=== PATIENT | male | born 1940 | race Caucasian/White ===

== ENCOUNTER → 2017-06-26 | Outpatient (CLI) | payer MEDICARE ==
[~2017-06-26] MED LIST: REGADENOSON 0.4 MG/5 ML DISP.SYRIN. IV ONE
--- NOTE | 2017-06-26 11:13 | CARD ---
MR#: [id number] Date of Study: 06/26/2017 Ordering Physician: OZ ZHONG, Referring Physician: OZ ZHONG, Tech: URIEL Forbes APPROVED REPORT EXAM: Two-dimensional and M-mode echocardiogram with Doppler and color Doppler. Other Information Quality : Average INDICATION Chest Pain Hx - Aortic Dissection 2D DIMENSIONS Left Atrium(2D)4.0 (1.6-4.0cm)IVSd1.5 (0.7-1.1cm) Aortic Root(2D)4.0 (2.0-3.7cm)LVDd3.9 (3.9-5.9cm) LVOT Diameter2.0 (1.8-2.4cm)PWd1.4 (0.7-1.1cm) LVDs2.4 (2.5-4.0cm)FS (%) 31.0 % SV47.6 mlLVEF(%)65.0 (>50%) Aortic Valve AoV Peak Herbert.169.8cm/sAoV VTI31.0cm AO Peak GR.11.5mmHgLVOT Peak Herbert.90.5cm/s LVOT VTI 17.72cmAO Mean GR.6mmHg ARTHUR (VMAX)1.62fk3PNB (VTI)1.84cm2 Mitral Valve MV E Tpjmnnng23.5cm/sMV DECEL EVRC136sg MV A Iaznewnk90.6cm/sE/A Ratio0.9 Tricuspid Valve TR P. Yivhwocl08re/sRAP BUEQKJAJ8fxXy TR Peak Gr.52ugMdIVTF50kcAt LEFT VENTRICLE The left ventricle is normal size. There is mild to moderate left ventricular hypertrophy. The left v entricular systolic function is normal and the ejection fraction is within normal range. The Ejection Fraction is 55-60%. There is normal LV segmental wall motion. RIGHT VENTRICLE The right ventricle is normal size. There is normal right ventricular wall thickness. The right ventr icular systolic function is normal. ATRIA The left atrium is borderline dilated. The right atrium size is normal. Mobile interatrial septum. AORTIC VALVE The aortic valve is probably trileaflet. Doppler and Color Flow revealed mild aortic regurgitation. T here is no significant aortic valvular stenosis. MITRAL VALVE The mitral valve leaflets are calcified. The anterior leaflet is redundant and prolapses. There is no mitral valve stenosis. Doppler and Color-flow revealed trace to mild mitral regurgitation. TRICUSPID VALVE The tricuspid valve is normal in structure and function. Doppler and Color Flow revealed mild tricusp id regurgitation. There is no tricuspid valve stenosis. PULMONIC VALVE The pulmonary valve is normal in structure and function. Doppler and Color Flow revealed trace to mil d pulmonic valvular regurgitation. GREAT VESSELS The aortic root is mildly enlarged. (4.0 cm) The ascending aorta is normal in size. Not able to visua lize the aortic arch. The IVC is normal in size and collapses >50% with inspiration. PERICARDIAL EFFUSION There is no pleural effusion. There is no evidence of significant pericardial effusion. Critical Notification Critical Value: No <Conclusion> The left ventricle is normal size. The left ventricular systolic function is normal and the ejection fraction is within normal range. The Ejection Fraction is 55-60%. There is mild to moderate left ventricular hypertrophy. There is no significant aortic valvular stenosis. Doppler and Color Flow revealed mild aortic regurgitation. Doppler and Color-flow revealed trace to mild mitral regurgitation. Doppler and Color Flow revealed mild tricuspid regurgitation. The aortic root is mildly enlarged. (4.0 cm) Signed by : Joel Arcos MD Electronically Approved : 06/26/2017 11:12:18
--- NOTE | 2017-06-26 12:09 | RAD ---
MR#: [id number] Date of Study: 06/26/2017 Ordering Physician: OZ ZHONG, Referring Physician: LILIANA ALMANZA Tech: Luis Sandoval, RT (R) (N) APPROVED REPORT Test Type: Pharmacological Stress Nurse/Tech: Emily Montenegro Test Indications: CP Cardiac History: See Electronic Medical Record Medications: See EMR Resting Heart Rate: 67 bpm Resting Blood Pressure: 187/78mmHg Pretest Chest Pain: None Pharm. Details Pharmacologic stress testing was performed using 0.4mg per 5ml of regadenoson given intravenously ove r 7-10 seconds. POST EXERCISE Reason for Termination: Infusion complete Max HR: 84 bpm Max Blood Pressure: 177/87mmHg Chest Pain: No. Arrhythmia: No. ST Change: No. INTERPRETATION Stress EKG Conclusion: The resting EKG shows a sinus rhythm and mild nonspecific ST segment changes. The stress EKG shows no significant changes from baseline. No EKG evidence of stress-induced ischemia. Imaging Protocol IMAGE PROTOCOL: Rest Tc-99m/stress Tc-99m 1 day Rest: Stress: Viability: Radiopharm.Tc99m PozlcqyvlIw51k Sestamibi Uqns45uIu 33mCi Duration 20min. 15min. Img Date 06/26/2017 06/26/2017 Inj-Img Epnq07eoz. 45min. STRESS DATA End Diast. Vol.104.0mlAv. Heart Rate86.0bpm LVEDV index BSA2.0mlCardiac Output0.1L/min End Syst. Vol.27.0mlCO Index BSA6.7L/min LVESV index BSA0.0mlMyocardial Jwny622.0g Eject. Bpsjxmiz37.0% Stress Rates Pk. Fill Rate3.31EDV/secLVtime Pk. Fill 187.61msec Pk. Empty Rate5.26ESV/secLVtime Pk. Ojwjf310.58msec 1/3 Pk. Fill1.36EDV/sec Stress Scores Regional WT2.00Summed WT7.00 Regional WM0.00Summed WM8.00 LV Perfusion The stress scans show no significant defects. The rest scans show no significant defects. Nuclear imaging shows no reversible ischemia or infarct. Wall Motion Normal left ventricular systolic function with an ejection fraction of greater than 70%. LV Perf. Quant 17 Seg. SSS3.00 17 Seg. SRS3.00 17 Seg. SDS0.00 Stress Defect Extent (% LAD)0.00Rest Defect Extent (% LAD)0.00Rev. Defect Extent (% LAD)0.00 Stress Defect Extent (% LCX) 33.80Rest Defect Extent (% LCX)26.30Rev. Defect Extent (% LCX)0.00 Stress Defect Extent (% RCA)0.00Rest Defect Extent (% RCA)0.00Rev. Defect Extent (% RCA)0.00 Stress Defect Extent (% RACHANA)5.90Rest Defect Extent (% RACHANA)4.60Rev. Defect Extent (% RACHANA)0.00 Conclusion 1. No EKG evidence of stress-induced ischemia. 2. Nuclear imaging shows no reversible ischemia or infarct. 3. Normal left ventricular systolic function with an ejection fraction of greater than 70%. 4. Low risk Lexiscan nuclear stress test. Signed by : Joel Arcos MD Electronically Approved : 06/26/2017 12:09:14
--- NOTE | 2017-06-27 08:35 | RAD ---
MR#: [id number] Date of Study: 06/26/2017 Ordering Physician: OZ ZHONG, Referring Physician: OZ ZHONG, Tech: Alison Wharton, MARIELOS, RVT, RTR APPROVED REPORT Patient Location: OUT-PATIENT Indications Dissection of the Abdominal Aorta Limited diagnostic images of the abdominal aorta. No significant elevation velocities as noted. Due t o body habitus and patient discomfort grayscale images are limited. No obvious dilation is noted. Critical Notification Critical Value: No <Conclusion> 1. No significant aneurysmal dilatation is noted with limited evaluation on carrillo scale images of the abdominal aorta. No significant velocity acceleration is noted. Signed by : Oz Zhong, Electronically Approved : 06/27/2017 08:35:37
--- NOTE | 2017-06-27 09:12 | RAD ---
MR#: [id number] Date of Study: 06/26/2017 Ordering Physician: OZ ZHONG, Referring Physician: OZ ZHONG, Tech: Alison Wharton RDMS, RVT, RTR APPROVED REPORT Patient Location: OUT-PATIENT Indications Grayscale images of the bilateral lower extremity arterial vessels reveals mild to moderate calcified plaque throughout the arterial system. On the right velocities are mostly triphasic and biphasic ran ging from approximately 84-29 cm/s the distal popliteal segment. No focal high-grade stenosis is iden tified. Below the knee there is three-vessel runoff again without any significant velocity accelerati on or deceleration. Similarly on the left side velocities range from approximately 64 cm/s to 41 cm a t the knee. There is three-vessel runoff below the knee. Critical Notification Critical Value: No <Conclusion> 1. No evidence of focal stenosis is identified in the bilateral lower extremity arterial vessels. Signed by : Oz Zhong, Electronically Approved : 06/27/2017 09:12:12
== END | disposition home or self-care (01) ==
LOC: US 08:39
PROVIDERS: ATTEND Internal Medicine Cardiovascular Disease
DX: I71.01 Dissection of thoracic aorta (principal); I10 Essential (primary) hypertension; F17.200 Nicotine dependence, unspecified, uncomplicated; Z86.79 Personal history of other diseases of the circulatory system; I73.9 Peripheral vascular disease, unspecified
CPT/HCPCS: 76770; 78452; 93017; 93306; 93925; 96374; 96375; 96376; A9500; J2785

== ENCOUNTER → 2017-07-10 | Outpatient (CLI) | payer MEDICARE ==
[~2017-07-10] MED LIST changes: +IOHEXOL 300 MG/ML 75 ML VIAL. IV ONE; -REGADENOSON 0.4 MG/5 ML DISP.SYRIN. IV ONE
[2017-07-10 11:08] LABS: CREATININE 1.6 mg/dL (0.7-1.3); GFR 42.1
--- NOTE | 2017-07-10 14:46 | RAD ---
CTA of the chest and abdomen with and without contrast Clinical indications: Aortic dissection. Technique: Noncontrast axial localizer was performed. After IV infusion of 60 cc of Omnipaque 300, helical CT scanning of the chest and abdomen was performed using the thoracic and abdominal aortic protocol. Using a MIP algorithm, a 3-D reconstructed aortogram was generated. PQRS Compliance Statement: One or more of the following individualized dose reduction techniques were utilized for this examination: 1. Automated exposure control 2. Adjustment of the mA and/or kV according to patient size 3. Use of iterative reconstruction technique CHEST CTA FINDINGS: There is a intimal flap starting at the level of the proximal aortic arch extending through the entire descending thoracic aorta. The brachiocephalic artery and the left common carotid artery and the left subclavian artery arise from the true lumen. The intimal flap does not extend significantly into the ascending aorta and does not involve the sinus of Valsalva. The greatest caliber of the ascending aorta is 3.9 cm. The greatest caliber of the aortic arch is 4.6 cm. The greatest caliber of the descending thoracic aorta is 4.2 cm. There are calcifications of the aortic valve leaflets which may be seen with aortic stenosis. The heart size is at the upper limits of normal. No pericardial effusion is seen. Calcified atheromatous disease of the coronary arteries is seen. The pulmonary arteries are not optimally opacified to evaluate for pulmonary emboli. No enlarged thoracic lymphadenopathy is seen. A large hiatal hernia is seen containing 50% of the stomach. Mild atelectasis is seen within the dependent portion of the lung triplett. Otherwise no lung mass or lung consolidation is seen. No pleural effusion or pneumothorax is evident. The proximal bronchial tree is patent. There is a mild compression deformity of T2. No osteolytic process is seen. ABDOMEN CTA FINDINGS: The intimal flap or dissection continues into the abdominal aorta throughout it's length all the way down to the distal aortic bifurcation. There is no extension into the common iliac arteries. There is decreased enhancement of the true lumen and false lumen related to slower flow. Ultrasound dated 06/26/2017 demonstrated color Doppler flow within the abdominal aorta. Greatest caliber of the abdominal aorta is within the proximal portion measuring 3.7 cm in AP dimension and 3.9 cm in transverse dimension. The celiac artery and superior mesenteric artery and right main renal artery come off the true lumen. The left main renal artery appears to come off both lumens although more so off the false lumen. The inferior mesenteric artery comes off the false lumen. Both kidneys enhance. No hydronephrosis is seen on either side. No enlarged abdominal lymphadenopathy is seen. No adrenal mass is seen. The spleen is not enlarged. No focal hepatic mass is seen. The pancreas is normal. The gallbladder is normal. No extrahepatic biliary ductal dilatation is seen. No obstructive bowel pattern is evident. No free air or free fluid or mesenteric edema is seen. No osteolytic process is seen. There is a focal round osteosclerotic lesion of the right iliac bone and a smaller lesion involving the posterior right iliac bone adjacent to the right SI joint. 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 Findings as discussed above. Calcification of aortic valve leaflets which may be seen with aortic valvular stenosis. The heart size is at the upper limits of normal. No pericardial effusion is seen. Calcified atheromatous disease of the coronary arteries is seen. Large hiatal hernia. No acute lung infiltrate. 2 osteosclerotic areas in the right iliac bone are seen. These may represent bone islands but correlation with PSA is recommended to exclude osteoblastic metastatic disease from prostate cancer. Compression fracture of T2 of indeterminate age.
== END | disposition home or self-care (01) ==
LOC: CT 10:17
PROVIDERS: ATTEND Internal Medicine Cardiovascular Disease
DX: I71.01 Dissection of thoracic aorta (principal); M48.54XA Collapsed vertebra, not elsewhere classified, thoracic region, initial encounter for fracture; I25.10 Atherosclerotic heart disease of native coronary artery without angina pectoris; K44.9 Diaphragmatic hernia without obstruction or gangrene; J98.11 Atelectasis
CPT/HCPCS: 36415; 71275; 74175; 82565; 84520; Q9967

== ENCOUNTER 2019-04-16 16:02 | Inpatient (IN) | payer MEDICARE ==
[~2019-04-16] VITALS: Ht 167.6 cm; Wt 64.9 kg
--- NOTE | 2019-04-16 16:28 | PHYS DOC ---
Past History Past Medical History: GI Bleed, High Cholesterol, Hypertension, Other Additional Past Medical Histor: bleeding ulcers, Pulmonary Embolism, " blood clot in my lung" Past Surgical History: Other Additional Past Surgical Histo: Aortic Aneurysm repair, Alcohol Use: Rarely Drug Use: None Adult General Chief Complaint Chief Complaint: NAUSEA/VOMITING/DIARRHEA HPI HPI Patient is a 78-year-old male, on an unknown anticoagulant and unknown other medications, who presents to the emergency department for evaluation. He states he has had nausea and vomiting and diarrhea for the past 2 days, but has not had any bloody stools. He states he thinks he has the flu, as he has felt weak. He has not had any significant nasal congestion, but he does report a mild nonproductive cough. Denies any chest pain or shortness of breath, any abdominal pain, or any new pain at all. He has not had any definite fevers. He does report generalized weakness and fatigue. There are no alleviating or exacerbating factors to his symptoms otherwise. Review of Systems Review of Systems Constitutional: Denies fever or chills [] Eyes: Denies change in visual acuity, redness, or eye pain [] HENT: Denies nasal congestion or sore throat [] Respiratory: Denies productive cough or shortness of breath [] Cardiovascular: NThe patient denies any shortness of breath, chest pain, palpitations, or orthopnea [] GI: Denies abdominal pain, bloody emesis, bloody stools.[] : Denies dysuria or hematuria [] Musculoskeletal: Denies back pain or joint pain [] Integument: Denies rash or skin lesions [] Neurologic: Denies headache, focal weakness or sensory changes [] Endocrine: Denies polyuria or polydipsia [] All other systems were reviewed and found to be within normal limits, except as documented in this note. Current Medications Current Medications Current Medications Medications (Trade) Dose Ordered Sig/Corazon Start Time Stop Time Status Last Admin Dose Admin Iohexol (Omnipaque 300 Mg/ml) 75 ml 1X ONCE 04/16/19 16:30 04/16/19 16:31 UNV Sodium Chloride 1,000 ml @ 1,000 mls/hr 1X ONCE 04/16/19 16:30 04/16/19 17:29 UNV Allergies Allergies Allergies Coded Allergies Type Severity Reaction Last Updated Verified No Known Drug Allergies 06/26/17 No Physical Exam Physical Exam PHYSICAL EXAM: CONSTITUTIONAL: Well developed, well nourished HEAD: normocephalic, atraumatic EENT: PERRL, EOMI. Conjunctivae normal color, sclerae non-icteric; moist mucous membranes. NECK: Supple, non-tender; no meningismus. LUNGS: Lungs CTA, breathing even and unlabored. Normal air movement. HEART: Regular rate and rhythm, no murmur CHEST: No deformity; non-tender ABDOMEN: The abdomen is soft, and non-tender, no masses or bruits. Normal bowel sounds are present. EXTREM: Normal ROM; no deformity, no calf tenderness. Normal pulses palpable in all extremities. There is no pedal edema. SKIN: No rash; no diaphoresis NEURO: Alert; normal speech and cognition; CN's grossly intact; strength grossly intact without focal deficit. BACK: No CVA TTP. PSYCHIATRIC: Patient appears tearful. Current Patient Data Vital Signs Vital Signs Date Time Temp Pulse Resp B/P (MAP) Pulse Ox O2 Delivery O2 Flow Rate FiO2 04/16/19 16:06 97.9 70 18 99 Room Air EKG EKG Normal sinus rhythm at a rate of 60 beats for minute, normal axis, normal intervals, suggestion of left ventricular hypertrophy without acute ischemic ST/T changes.[] Radiology/Procedures Radiology/Procedures PROCEDURE: CT ABD PELV W/ IV CONTRST ONLY PQRS Compliance statement: One or more of the following individualized dose reduction techniques were utilized for this examination: 1. Automated exposure control. 2. Adjustment of the mA and/or kV according to patient size. 3. Use of iterative reconstruction technique. Indication: Nausea, vomiting and diarrhea. TECHNIQUE: CT abdomen and pelvis with IV contrast with multiplanar reformats. COMPARISON: 07/10/2017 FINDINGS: Heart is normal in size. No pericardial or pleural effusion. Clear lung bases. Liver, spleen, gallbladder, pancreas, adrenals and kidneys are within normal limits. No free pelvic fluid or ascites. The prostate and seminal vesicles show no large mass. No enlarged retroperitoneal or pelvic adenopathy. Chronic dissection is seen in the distal thoracic aorta extending into the proximal left common iliac artery with scattered atherosclerotic calcifications. The false and true lumen show opacification. No bowel obstruction. Sigmoid diverticulosis. Dilated loops of small bowel are seen in the pelvis. Moderate sliding hiatal hernia. No pneumoperitoneum. Urinary bladder demonstrates no radiopaque stone. There is circumferential wall thickening of the urinary bladder. No suspicious bony lesion. IMPRESSION: 1. Stable aortic dissection. 2. Few dilated distal small bowel loops in the pelvis, nonspecific but developing small bowel obstruction is not ruled out. 3. No nephrolithiasis or hydronephrosis. 4. Moderate-sized sliding hiatal hernia.[] PROCEDURE: PORTABLE CHEST 1V Indication: Cough. TECHNIQUE:Portable AP chest X-ray COMPARISON: None FINDINGS: Median sternotomy noted. Heart is normal in size. Tortuous thoracic aorta. Lungs are clear. No pneumothorax or pleural effusion. Visualized bony thorax within normal limits. IMPRESSION: Findings of mild COPD with superimposed mild atypical/viral infection not ruled out. Course & Med Decision Making Course & Med Decision Making Pertinent Labs and Imaging studies reviewed. (See chart for details) []6:30 PM: The patient's condition remained stable, he still appears somewhat puny. I discussed the case with the hospitalist, who will admit the patient for further hydration and evaluation and treatment. Dragon Disclaimer Dragon Disclaimer This electronic medical record was generated, in whole or in part, using a voice recognition dictation system. Departure Departure: Impression: Primary Impression: Nausea vomiting and diarrhea Additional Impression: Dehydration Disposition: ADMITTED INPATIENT Admitting Physician: Genie Gomez Condition: STABLE Referrals: HIPOLITO MAYNARD MD (PCP) Problem Qualifiers ZACH VERAS MD Apr 16, 2019 16:28
[2019-04-16] MEDS ORDERED: ONDANSETRON PF 4 MG/2 ML VIAL. IVP ONE (16:30)
[2019-04-16] MEDS ORDERED: IV NORMAL SALINE 1,000ML 1,000 ML IV ONE (16:30)
[2019-04-16] MEDS ORDERED: IOHEXOL 300 MG/ML 75 ML VIAL. IV ONE ×2 (16:30)
--- NOTE | 2019-04-16 16:30 | EKG ---
[address] [address] Test Date: 2019-04-16 Test Time: 16:28:58 Pat Name: ETHAN DAWNMARYSOL Department: Room: Gender: M [employer] Super[employer]: : [id number] Requested By: ZACH VERAS Order Number: [id number] Reading MD: Measurements Intervals [place] Rate: 68 P: 48 DC: 156 QRS: 64 QRSD: 108 T: 54 QT: 384 QTc: 409 Interpretive Statements SINUS RHYTHM LEFT ATRIAL ABNORMALITY QRS(T) CONTOUR ABNORMALITY CONSIDER ANTEROLATERAL MYOCARDIAL DAMAGE ABNORMAL ECG RI6.01 No previous ECG available for comparison
--- NOTE | 2019-04-16 16:41 | RAD ---
Indication: Cough. TECHNIQUE:Portable AP chest X-ray COMPARISON: None FINDINGS: Median sternotomy noted. Heart is normal in size. Tortuous thoracic aorta. Lungs are clear. No pneumothorax or pleural effusion. Visualized bony thorax within normal limits. IMPRESSION: Findings of mild COPD with superimposed mild atypical/viral infection not ruled out. Electronically signed by: James Donis DO (04/16/2019 4:39 PM) [facility]
[2019-04-16 16:55] LABS: BASO % 1 % (0-3); EOS % 0 % (0-3); HEMOGLOBIN 12.6 g/dL (13.0-17.5); LYMPH # 1.8 x10^3/uL (1.0-4.8); LYMPH % 18 % (24-48); MEAN CORPUSCULAR HEMOGLOBIN 31 pg (25-35); MEAN CORPUSCULAR HGB CONC 33 g/dL (31-37); MEAN CORPUSCULAR VOLUME 92 fL (79-100); MONO # 0.9 x10^3/uL (0.0-1.1); MONO % 9 % (0-9); NEUT # 7.3 x10^3uL (1.8-7.7); NEUT % 73 % (31-73); PLATELET COUNT 146 x10^3/uL (140-400); RED BLOOD COUNT 4.11 x10^6/uL (4.30-5.70); RED CELL DISTRIBUTION WIDTH 14.7 % (11.5-14.5)
[2019-04-16 17:03] LABS: INFLUENZA A PATIENT NEGATIVE (NEGATIVE); INFLUENZA B PATIENT NEGATIVE (NEGATIVE)
[2019-04-16 17:38] LABS: ALBUMIN 3.9 g/dL (3.4-5.0); ALBUMIN/GLOBULIN RATIO 1.1 (1.0-1.7); CALCIUM 9.3 mg/dL (8.5-10.1); CREATININE 1.1 mg/dL (0.7-1.3); GFR 64.6; MAGNESIUM 1.6 mg/dL (1.8-2.4); POTASSIUM 3.4 mmol/L (3.5-5.1); TOTAL PROTEIN 7.3 g/dL (6.4-8.2)
--- NOTE | 2019-04-16 18:23 | RAD ---
PQRS Compliance statement: One or more of the following individualized dose reduction techniques were utilized for this examination: 1. Automated exposure control. 2. Adjustment of the mA and/or kV according to patient size. 3. Use of iterative reconstruction technique. Indication: Nausea, vomiting and diarrhea. TECHNIQUE: CT abdomen and pelvis with IV contrast with multiplanar reformats. COMPARISON: 07/10/2017 FINDINGS: Heart is normal in size. No pericardial or pleural effusion. Clear lung bases. Liver, spleen, gallbladder, pancreas, adrenals and kidneys are within normal limits. No free pelvic fluid or ascites. The prostate and seminal vesicles show no large mass. No enlarged retroperitoneal or pelvic adenopathy. Chronic dissection is seen in the distal thoracic aorta extending into the proximal left common iliac artery with scattered atherosclerotic calcifications. The false and true lumen show opacification. No bowel obstruction. Sigmoid diverticulosis. Dilated loops of small bowel are seen in the pelvis. Moderate sliding hiatal hernia. No pneumoperitoneum. Urinary bladder demonstrates no radiopaque stone. There is circumferential wall thickening of the urinary bladder. No suspicious bony lesion. IMPRESSION: 1. Stable aortic dissection. 2. Few dilated distal small bowel loops in the pelvis, nonspecific but developing small bowel obstruction is not ruled out. 3. No nephrolithiasis or hydronephrosis. 4. Moderate-sized sliding hiatal hernia. Electronically signed by: James Donis DO (04/16/2019 6:20 PM) [facility]
[2019-04-16 18:42] LABS: BILIRUBIN,URINE NEG (NEG); CLARITY,URINE CLEAR; COLOR,URINE YELLOW; GLUCOSE,URINE NEG (NEG)
[2019-04-16 18:43] LABS: BACTERIA,URINE 0 /HPF (0-FEW); NITRITE,URINE NEG (NEG); RBC,URINE OCC /HPF (0-2); SQUAMOUS EPITHELIAL CELL,UR OCC /LPF; UROBILINOGEN,URINE 0.2 mg/dL (0.2 mg/dL); WBC,URINE OCC /HPF (0-4)
[2019-04-16] MEDS ORDERED: IV RINGERS SOLUTION,LACTATED 1,000 ML IV ONE (18:45)
[2019-04-16] MEDS ORDERED: ONDANSETRON PF 4 MG/2 ML VIAL. IVP PRN (19:00)
[2019-04-16 20:30] VITALS: BP 180/88
[2019-04-16] MEDS ORDERED: hydrALAZINE 20 MG/ML VIAL. IV PRN (22:00)
[2019-04-16] MEDS: ONDANSETRON PF 4 MG/2 ML VIAL. IVP PRN (22:38)
[2019-04-16 23:25] VITALS: BP 160/84
[2019-04-17] MEDS: MORPHINE SULFATE 4 MG/ML DISP.SYRIN. IV PRN ×2 (01:05→16:09)
[2019-04-17 05:58] VITALS: BP 159/79
[2019-04-17] MEDS ORDERED: POTASSIUM CHLORIDE 10MEQ 100 ML IV SCH (07:45)
--- NOTE | 2019-04-17 07:50 | PDOC2 ---
CARDIAC CONSULT DATE OF CONSULT Date Of Consult DATE: 04/17/19 TIME: 07:44 REASON FOR CONSULT Reason for Consult Elevated BNP and troponin REFERRING PHYSICIAN Referring Physician Dr. Gomez SOURCE Source: Chart review, Patient HPI History of Present Illness This is a 78 yo male who presented secondary to nausea/vomiting and diarrhea for the last 3 days. Feels very weak. Tolerating fluids this morning. No complaints of shortness of breath, chest pain, dizziness, diaphoresis, or LE edema. Reports having normal stools prior to beginning with N/V/D. Has been unable to take his meds due to vomiting; blood pressure elevated upon arrival. PAST MEDICAL HISTORY Cardiovascular: HTN, hyperipidemia, Other (Chronic type B dissection) CENTRAL NERVOUS SYSTEM: CVA GI: Other (GERD, Peptic Ulcer disease, Other (hiatal hernia)) Heme/Onc: Other (DVT, PE) Musculoskeletal: Osteoarthritis, Other (DDD) Renal/: Benign prostatic enlarg. PAST SURGICAL HISTORY Past Surgical History: Total knee replacement (right ), Other (AV repair, Type A aortic dissection repair ) FAMILY HISTORY Family History: Cancer (lung ) CURRENT MEDICATIONS Current Medications Current Medications Sodium Chloride 1,000 ml @ 1,000 mls/hr 1X ONCE IV Last administered on 04/16/19at 16:40; Start 04/16/19 at 16:30; Stop 04/16/19 at 17:29; Status DC Iohexol (Omnipaque 300 Mg/ml) 75 ml 1X ONCE IV Last administered on 04/16/19at 17:57; Start 04/16/19 at 16:30; Stop 04/16/19 at 16:31; Status DC Iohexol (Omnipaque 300 Mg/ml) 75 ml 1X ONCE IV ; Start 04/16/19 at 16:30; Stop 04/16/19 at 16:31; Status DC Ondansetron HCl (Zofran) 4 mg 1X ONCE IVP Last administered on 04/16/19at 16:40; Start 04/16/19 at 16:30; Stop 04/16/19 at 16:31; Status DC Lactated Ringer's 1,000 ml @ 75 mls/hr 1X ONCE IV Last administered on 04/16/19at 22:38; Start 04/16/19 at 18:45; Stop 04/17/19 at 08:04 Ondansetron HCl (Zofran) 4 mg PRN Q6HRS PRN IVP NAUSEA/VOMITING Last administered on 04/16/19at 19:03; Start 04/16/19 at 19:00; Stop 04/16/19 at 21:53; Status DC Ondansetron HCl (Zofran) 4 mg PRN Q4HRS PRN IVP NAUSEA/VOMITING Last administered on 04/16/19at 22:38; Start 04/16/19 at 22:00 Morphine Sulfate (Morphine 4mg Syringe) 4 mg PRN Q4HRS PRN IV PAIN Last administered on 04/17/19at 01:05; Start 04/16/19 at 22:00 Hydralazine HCl (Apresoline) 10 mg PRN Q4HRS PRN IV ELEVATED BP, SEE COMMENTS Last administered on 04/16/19at 22:38; Start 04/16/19 at 22:00 Potassium Chloride 100 ml @ 100 mls/hr Q1H IV ; Start 04/17/19 at 08:00; Stop 04/17/19 at 11:59 Potassium Chloride 100 ml @ 100 mls/hr Q1H IV ; Start 04/17/19 at 07:45; Stop 04/17/19 at 11:44; Status UNV Magnesium Sulfate 50 ml @ 25 mls/hr 1X ONCE IV ; Start 04/17/19 at 12:00; Stop 04/17/19 at 13:59 ALLERGIES Allergies: Coded Allergies: aspirin (Verified Adverse Reaction, Unknown, 04/16/19) " My bleeding ulcers" ROS Review of Systems 14 point ROS conducted with pertinent positives noted above in HPI PHYSICAL EXAM Physical Exam General: Alert, Oriented X3, Cooperative, No acute distress HEENT: Atraumatic, Mucous membr. moist/pink Heart: Regular rate, Normal S1, Normal S2, Other (3/6 systolic murmur) Lungs: CTA Abdomen: Soft, Other (mild diffuse tenderness) Extremities: No cyanosis, No tenderness/swelling Skin: No breakdown, No significant lesion Neuro: Normal speech, Sensation intact Psych/Mental Status: Mental status NL, Mood NL MUSCULOSKELETAL: Osteoarthritic changes both hands VITALS Vital Signs Vital Signs Date Time Temp Pulse Resp B/P (MAP) Pulse Ox O2 Delivery O2 Flow Rate FiO2 04/17/19 05:58 97.6 70 18 159/79 (105) 96 Room Air LABS LABS Laboratory Tests Test 04/16/19 16:25 04/16/19 17:00 04/16/19 17:55 04/16/19 20:00 White Blood Count 10.0 x10^3/uL (4.0-11.0) Red Blood Count 4.11 x10^6/uL (4.30-5.70) Hemoglobin 12.6 g/dL (13.0-17.5) Hematocrit 38.0 % (39.0-53.0) Mean Corpuscular Volume 92 fL (79-100) Mean Corpuscular Hemoglobin 31 pg (25-35) Mean Corpuscular Hemoglobin Concent 33 g/dL (31-37) Red Cell Distribution Width 14.7 % (11.5-14.5) Platelet Count 146 x10^3/uL (140-400) Neutrophils (%) (Auto) 73 % (31-73) Lymphocytes (%) (Auto) 18 % (24-48) Monocytes (%) (Auto) 9 % (0-9) Eosinophils (%) (Auto) 0 % (0-3) Basophils (%) (Auto) 1 % (0-3) Neutrophils # (Auto) 7.3 x10^3uL (1.8-7.7) Lymphocytes # (Auto) 1.8 x10^3/uL (1.0-4.8) Monocytes # (Auto) 0.9 x10^3/uL (0.0-1.1) Eosinophils # (Auto) 0.0 x10^3/uL (0.0-0.7) Basophils # (Auto) 0.0 x10^3/uL (0.0-0.2) Prothrombin Time 11.1 SEC (9.4-11.4) Prothromb Time International Ratio 1.1 (0.9-1.1) Activated Partial Thromboplast Time 21 SEC (23-33) Lactic Acid Level 2.1 mmol/L (0.4-2.0) 1.5 mmol/L (0.4-2.0) Influenza Type A (Rapid) Negative (NEGATIVE) Influenza Type B (Rapid) Negative (NEGATIVE) Sodium Level 143 mmol/L (136-145) Potassium Level 3.4 mmol/L (3.5-5.1) Chloride Level 107 mmol/L (98-107) Carbon Dioxide Level 25 mmol/L (21-32) Anion Gap 11 (6-14) Blood Urea Nitrogen 18 mg/dL (8-26) Creatinine 1.1 mg/dL (0.7-1.3) Estimated GFR (Cockcroft-Gault) 64.6 BUN/Creatinine Ratio 16 (6-20) Glucose Level 103 mg/dL (70-99) Calcium Level 9.3 mg/dL (8.5-10.1) Magnesium Level 1.6 mg/dL (1.8-2.4) Total Bilirubin 1.0 mg/dL (0.2-1.0) Aspartate Amino Transf (AST/SGOT) 21 U/L (15-37) Alanine Aminotransferase (ALT/SGPT) 21 U/L (16-63) Alkaline Phosphatase 68 U/L (46-116) Troponin I Quantitative 0.020 ng/mL (0-0.055) TK-Ymh-T-Type Natriuretic Peptide 2117 pg/mL (0-449) Total Protein 7.3 g/dL (6.4-8.2) Albumin 3.9 g/dL (3.4-5.0) Albumin/Globulin Ratio 1.1 (1.0-1.7) Lipase 131 U/L (73-393) Urine Collection Type Unknown Urine Color Yellow Urine Clarity Clear Urine pH 6.5 Urine Specific [place] 1.020 Urine Protein 30 mg/dl (NEG-TRACE) Urine Glucose (UA) Neg mg/dL (NEG) Urine Ketones (Stick) Neg mg/dL (NEG) Urine Blood Trace (NEG) Urine Nitrite Neg (NEG) Urine Bilirubin Neg (NEG) Urine Urobilinogen Dipstick 0.2 mg/dL (0.2 mg/dL) Urine Leukocyte Esterase Neg (NEG) Urine RBC Occ /HPF (0-2) Urine WBC Occ /HPF (0-4) Urine Squamous Epithelial Cells Occ /LPF Urine Bacteria 0 /HPF (0-FEW) Urine Mucus Slight /LPF Test 04/16/19 22:50 04/17/19 05:53 Troponin I Quantitative < 0.017 ng/mL (0-0.055) 0.020 ng/mL (0-0.055) ECHOCARDIOGRAM Echocardiogram <Conclusion> The left ventricle is normal size. The left ventricular systolic function is normal and the ejection fraction is within normal range. The Ejection Fraction is 55-60%. There is mild to moderate left ventricular hypertrophy. There is no significant aortic valvular stenosis. Doppler and Color Flow revealed mild aortic regurgitation. Doppler and Color-flow revealed trace to mild mitral regurgitation. Doppler and Color Flow revealed mild tricuspid regurgitation. The aortic root is mildly enlarged. (4.0 cm) DATE: 06/26/17 1112 STRESS TEST Stress Test Conclusion 1. No EKG evidence of stress-induced ischemia. 2. Nuclear imaging shows no reversible ischemia or infarct. 3. Normal left ventricular systolic function with an ejection fraction of greater than 70%. 4. Low risk Lexiscan nuclear stress test. DATE: 06/26/17 1209 ASSESSMENT/PLAN Assessment/Plan 1. Nausea/vomiting, diarrhea; improved 2. Hypomagnesemia, hypokalemia; being replaced 3. Accelerated hypertension; remains elevated. Has been unable to take oral meds 4. Slight troponin elevation; 0.02. Type II, demand ischemic secondary to above. MPI last year without evidence of ischemia or infarct 5. Elevated NT Pro BNP; no evidence of overt HF. Echo last year with preserved LV systolic function 6. Hx of Type A aortic dissection and AV repair 05/2012 7. Chronic type B dissection; stable per CTA 8. 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 9. H/o PUD, GI bleed. Hgb stable 10. Hyperlipidemia; statin Recommendations Blood pressure control; resume oral therapy as able. Hydralazine IV PRN Secondary prevention Replace K, Mg as warranted Supportive care Outpatient echo and followup LAUREN HORNE APRN Apr 17, 2019 07:50
[2019-04-17] MEDS: POTASSIUM CHLORIDE 10MEQ 100 ML IV SCH ×4 (08:22→11:33)
[2019-04-17] MEDS ORDERED: APIX5TAB3 PO (10:39)
[2019-04-17] MEDS ORDERED: METO25TA4 PO (10:39)
[2019-04-17] MEDS ORDERED: MORP-16 PO (10:39)
[2019-04-17] MEDS ORDERED: GABA-586 PO ×3 (10:39)
[2019-04-17] MEDS ORDERED: QUET25TA5 PO (10:39)
[2019-04-17] MEDS ORDERED: LISI10TA2 PO (10:39)
[2019-04-17] MEDS ORDERED: DULO60CA6 PO (10:39)
[2019-04-17] MEDS ORDERED: OXYC1TAB22 PO (10:39)
[2019-04-17] MEDS ORDERED: ALPR0.254 PO (10:39)
[2019-04-17] MEDS ORDERED: ATOR20TA58 PO (10:39)
[2019-04-17] MEDS ORDERED: DUTA0.5C PO (10:39)
[2019-04-17 10:58] VITALS: BP 165/84
[2019-04-17] MEDS ORDERED: MAGNESIUM SULFATE 2GM 50 ML IV ONE ×2 (12:00→17:00)
[2019-04-17] MEDS: GABAPENTIN 300 MG CAPSULE. PO SCH ×2 (13:00→20:33)
[2019-04-17] MEDS ORDERED: oxyCODONE/APAP 10/325 1 TAB TABLET PO PRN (13:30)
[2019-04-17] MEDS ORDERED: ALPRAZolam 0.25 MG TABLET PO PRN (13:30)
[2019-04-17] MEDS ORDERED: IV RINGERS SOLUTION,LACTATED 1,000 ML IV SCH (13:30)
[2019-04-17 13:50] LABS: HEMOGLOBIN 11.7 g/dL (13.0-17.5); RED BLOOD COUNT 3.85 x10^6/uL (4.30-5.70); RED CELL DISTRIBUTION WIDTH 14.6 % (11.5-14.5); WHITE BLOOD COUNT 9.4 x10^3/uL (4.0-11.0)
[2019-04-17 14:01] LABS: ALBUMIN 3.7 g/dL (3.4-5.0); ALBUMIN/GLOBULIN RATIO 1.1 (1.0-1.7); CALCIUM 9.4 mg/dL (8.5-10.1); GFR 72.1; POTASSIUM 3.3 mmol/L (3.5-5.1)
[2019-04-17 14:29] VITALS: BP 157/77
[2019-04-17] MEDS: QUEtiapine 25 MG TABLET. PO SCH ×2 (14:30→20:33)
[2019-04-17] MEDS: DULoxetine HCL 60 MG CAPSULE.DR PO SCH (14:30)
[2019-04-17] MEDS: DUTASTERIDE 0.5 MG CAPSULE PO SCH (14:30)
[2019-04-17] MEDS: MORPHINE ER 30 MG TABLET.ER PO SCH ×2 (14:30→20:34)
[2019-04-17] MEDS: LISINOPRIL 10 MG TABLET PO SCH (14:30)
[2019-04-17] MEDS ORDERED: APIXABAN 5 MG TABLET. PO SCH (14:30)
[2019-04-17] MEDS: METOPROLOL TART IMMED RELEASE 25 MG TABLET PO SCH ×2 (14:30→20:33)
[2019-04-17] MEDS: POTASSIUM CL 40MEQ D5-0.45NACL 1,000 ML IV SCH (17:09)
[2019-04-17 17:56] VITALS: BP 143/76
[2019-04-17] MEDS: ATORVASTATIN CALCIUM 20 MG TABLET PO SCH (20:33)
[2019-04-17] MEDS: traZODone 50 MG TABLET. PO SCH (20:33)
--- NOTE | 2019-04-17 21:47 | HP ---
ADMIT DATE: 04/16/2019 HISTORY OF PRESENT ILLNESS: The patient is a 78-year-old male patient who presented to the Emergency Room with a complaint of recurrent bouts of nausea, vomiting and diarrhea. He stated that he has had nausea and vomiting for the last 2 days, has not had any bloody stool. He states that he thinks he has a flu and has been feeling very weak. He has not had any significant nasal congestion, but does report mild nonproductive cough. Denies any chest pain or shortness of breath. Denied any abdominal pain. He has not had any definite fever. He does report generalized weakness and fatigue. He was extensively evaluated in the Emergency Room. His EKG showed it was in sinus rhythm with a heart rate of 60 beats per minute, normal axis, normal intervals. CT scan of the abdomen and pelvis showed that he has stable aortic dissection, few dilated distal small bowel loops in the pelvis, nonspecific, but developing small-bowel obstruction is not ruled out. He has nephrolithiasis or hydronephrosis, moderate sized sliding hiatal hernia. His lab work showed that he has hypokalemia and hypomagnesemia. Urinalysis was essentially unremarkable and his influenza A and B were negative and was started on lactated Ringer's solution at 75 mL per hour. He also has received magnesium sulfate. PAST MEDICAL HISTORY: Significant for chronic aortic dissection, hyperlipidemia, coronary artery disease, hypertension, migraine headache, myocardial infarction, pulmonary embolism, chronic pain syndrome, ____. PAST SURGICAL HISTORY: Significant for coronary artery bypass graft surgery, knee replacement, hernia repair x 3. ALLERGIES: He has no known drug allergies. FAMILY HISTORY: Positive for coronary artery disease. SOCIAL HISTORY: He lives alone. He has 2 children. He does not smoke, drink alcohol or use recreational drugs. REVIEW OF SYSTEMS: As per history of present illness. MEDICATIONS: He is currently on following medications: He is on apixaban 5 mg twice a day, atorvastatin, calcium 20 mg at bedtime, metoprolol tartrate 25 mg twice a day, lisinopril 10 mg once a day, morphine sulfate extended release 30 mg twice a day, oxycodone/APAP 10/325 one tablet 4 times a day as needed, gabapentin 600 mg daily, gabapentin 600 mg at bedtime, gabapentin 900 mg at bedtime, duloxetine 60 mg daily, quetiapine fumarate 25 mg twice a day, alprazolam 0.25 mg daily and Avodart 0.5 mg once a day. OBJECTIVE: GENERAL: On arrival to the Emergency Room, the patient was pale, but no jaundice, cyanosis or thyromegaly. No jugular venous distention. No lower limb edema. VITAL SIGNS: His heart rate was 70, blood pressure was 168/95, temperature was 97.9, respiratory rate was 18 and oxygen saturation was 99%. HEAD, EYES, EARS, NOSE AND THROAT: Showed normocephalic, atraumatic. NECK: Supple. HEART: Showed normal first and second heart sounds. No gallop or murmur. CHEST: Clear to auscultation. No crepitation or rhonchi. ABDOMEN: Scaphoid, soft, nontender. NEUROLOGIC: He was awake, alert, responding appropriately. All his cranial nerves are intact. EXTREMITIES: He moves extremities without difficulty. He ambulates with a cane. LABORATORY DATA: His lab work on arrival showed a white cell count of 10,000, hemoglobin 12.6, hematocrit 38, MCV 92, and platelet count of 146,000 with normal manual differential. His chemistry showed a serum sodium 143, potassium 3.4, chloride 107, bicarbonate 25, anion gap of 11, BUN 18, creatinine 1.1, estimated GFR was 65 mL per minute, his glucose 103. Lactic acid was 1.5, calcium 9.3, magnesium was 1.6. Total bilirubin, AST, ALT, alkaline phosphatase were normal. His beta natriuretic peptide was 2117, total protein was 7.3, albumin was 3.9. First set of cardiac enzymes showed troponin to be less than 0.0120. His prothrombin time, INR and APTT are normal. His urinalysis was essentially unremarkable and his influenza A and B were negative. ASSESSMENT AND PLAN: So, in summary, this is a 78-year-old male patient who came in with generalized weakness, has had recurrent bouts of nausea, vomiting and diarrhea. He has hypokalemia and hypomagnesemia, multiple other medical problems including hypertension and hyperlipidemia. He apparently has history of pulmonary embolism, chronic pain syndrome and peripheral neuropathy as well as benign prostatic hypertrophy. PLAN: Plan is to continue with IV fluid. I would reconcile all his medication and repeat his labs this afternoon and again tomorrow. Start the first physical and occupational therapy. MAE LAWRENCE MD DR: Enzo JOB#: [id number] / [id number]
[2019-04-17 23:15] VITALS: BP 126/73
[2019-04-18] MEDS: POTASSIUM CL 40MEQ D5-0.45NACL 1,000 ML IV SCH ×2 (03:05→14:30)
[2019-04-18 06:17] LABS: CALCIUM 8.2 mg/dL (8.5-10.1); GFR 72.1; POTASSIUM 3.7 mmol/L (3.5-5.1)
[2019-04-18 06:22] VITALS: BP 101/57
[2019-04-18] MEDS: PANTOPRAZOLE IV 40 MG VIAL. IVP SCH (07:44)
[2019-04-18] MEDS ORDERED: BRIN10DR EACHEYE (07:48)
[2019-04-18] MEDS: LISINOPRIL 10 MG TABLET PO SCH (08:26)
[2019-04-18] MEDS: METOPROLOL TART IMMED RELEASE 25 MG TABLET PO SCH ×2 (08:26→20:26)
[2019-04-18] MEDS ORDERED: NEOMYCIN/BACI/POLY/HC OPHTH OINTMENT 3.5GM TUBE. OU SCH (09:00)
[2019-04-18] MEDS: GABAPENTIN 300 MG CAPSULE. PO SCH ×3 (09:07→20:25)
[2019-04-18] MEDS: MORPHINE ER 30 MG TABLET.ER PO SCH ×2 (09:07→20:25)
[2019-04-18] MEDS: DUTASTERIDE 0.5 MG CAPSULE PO SCH (09:07)
[2019-04-18] MEDS: DULoxetine HCL 60 MG CAPSULE.DR PO SCH (09:07)
[2019-04-18] MEDS: QUEtiapine 25 MG TABLET. PO SCH ×2 (09:07→20:24)
[2019-04-18] MEDS: ONDANSETRON PF 4 MG/2 ML VIAL. IVP PRN (09:09)
[2019-04-18 14:46] VITALS: BP 111/61
[2019-04-18 19:14] VITALS: BP 95/54
[2019-04-18] MEDS: traZODone 50 MG TABLET. PO SCH (20:24)
[2019-04-18] MEDS: ATORVASTATIN CALCIUM 20 MG TABLET PO SCH (20:25)
[2019-04-18] MEDS: BACITRACIN/POLYMYXIN B OPHTH OINTMENT 3.5GM TUBE. OU SCH (20:29)
--- NOTE | 2019-04-18 23:41 | PN ---
DATE: 04/18/2019 CHIEF COMPLAINT: Nausea, vomiting, diarrhea. SUBJECTIVE: The patient is better. Nausea has resolved. Diarrhea has subsided. He is tolerating some solid oatmeal. OBJECTIVE: VITAL SIGNS: Temperature 98.1 degrees Fahrenheit, pulse is 61 and regular, blood pressure 126/73, oxygen saturation 100% on room air. HEENT: Head is without trauma. Pupils are reactive. Sclera is nonicteric. Oropharynx clear. Mucous membranes are still a bit dry. NECK: Supple, no bruits identified. LUNGS: Otherwise clear with shallow respirations. CARDIOVASCULAR: Showed regular heart tones. No obvious gallops. Peripheral pulses are palpable and full. ABDOMEN: Soft, scaphoid, nontender, no organomegaly. Bowel sounds were hypoactive. No pulsatile masses. EXTREMITIES: Show no cyanosis or edema. NEUROLOGIC: Focally intact. Speech is fluent. PERTINENT LABORATORY STUDIES: The potassium is up to 3.7 mEq. Creatinine is stable at 1.0 mg/dL. Hemoglobin 11.7 g/dL with white count of 9400. ASSESSMENT: 1. A 78-year-old gentleman with self-limiting gastroenteritis, improving. 2. Dehydration, rehydrated. 3. History of stable aortic aneurysm. 4. Degenerative arthritis. 5. Mild hypokalemia, corrected. PLAN: 1. Advance diet as tolerated. 2. Continue IV hydration another day. 3. Continue home meds. 4. He requested some eyedrops, which have been ordered. 5. Tentative discharge plans for tomorrow. HIPOLITO PALMER MD DR: MARY ELLEN/sharon JOB#: [id number] / [id number]
[2019-04-19 05:38] VITALS: BP 95/56
[2019-04-19] MEDS: PANTOPRAZOLE IV 40 MG VIAL. IVP SCH (08:33)
[2019-04-19] MEDS: GABAPENTIN 300 MG CAPSULE. PO SCH (08:34)
[2019-04-19] MEDS: DUTASTERIDE 0.5 MG CAPSULE PO SCH (08:34)
[2019-04-19] MEDS: LISINOPRIL 10 MG TABLET PO SCH ×2 (08:34→08:47)
[2019-04-19] MEDS: DULoxetine HCL 60 MG CAPSULE.DR PO SCH (08:35)
[2019-04-19] MEDS: QUEtiapine 25 MG TABLET. PO SCH (08:35)
[2019-04-19] MEDS: METOPROLOL TART IMMED RELEASE 25 MG TABLET PO SCH (08:35)
[2019-04-19] MEDS: MORPHINE ER 30 MG TABLET.ER PO SCH (08:36)
[2019-04-19] MEDS: BACITRACIN/POLYMYXIN B OPHTH OINTMENT 3.5GM TUBE. OU SCH (08:36)
[2019-04-19 08:38] LABS: CALCIUM 8.3 mg/dL (8.5-10.1); CREATININE 1.1 mg/dL (0.7-1.3); GFR 64.6; POTASSIUM 4.5 mmol/L (3.5-5.1)
[2019-04-19 08:47] VITALS: BP 95/56
[2019-04-19] MEDS: POTASSIUM CL 40MEQ D5-0.45NACL 1,000 ML IV SCH (09:00)
--- NOTE | 2019-04-19 14:55 | DS ---
DATE OF DISCHARGE: 04/19/2019 ATTENDING PHYSICIAN: Dr. Genie Gomez FINAL DISCHARGE DIAGNOSES: 1. A 78-year-old gentleman with self-limiting gastroenteritis, resolved. 2. Dehydration, rehydrated. 3. History of stable aortic aneurysm. 4. Degenerative arthritis. 5. Mild hypokalemia, corrected. 6. Chronic anticoagulation. HISTORY AND PHYSICAL: The patient is a 78-year-old gentleman admitted with a 2-day history of nausea, vomiting and diarrhea. Workup revealed a self-limiting gastroenteritis. He was admitted for further treatment and rehydration and symptom control. PHYSICAL EXAMINATION: Please see the dictated note. PERTINENT LABORATORY AND X-RAY STUDIES: His hemoglobin was maintained at 12.6 g/dL with white count of 11,000, repeated was 11.7 g/dL. Chemistry panel showed stable creatinine of 1.1 mg/dL, BUN is 18, sodium 137, potassium was 3.3 mEq, replaced up to 4.5 mEq prior to discharge. COURSE IN THE HOSPITAL: The patient was admitted. He was started on IV hydration. Diet was advanced. He did well. Symptoms resolved. He had no further nausea, vomiting or diarrhea. He did well. By the third hospital day, his vital signs were stable. Lungs were clear. Abdomen was soft. He was ready for discharge. At this time, I recommended no restrictions. He should continue his alprazolam, Eliquis, Lipitor, eyedrops, Cymbalta, Neurontin, lisinopril, metoprolol, morphine sulfate ER, oxycodone p.r.n. and Seroquel dose is unchanged. He will follow up with his regular physician as scheduled. He was discharged then from our hospital in stable condition with explicit instructions and followup care. HIPOLITO PALMER MD DR: MARY ELLEN/sharon JOB#: [id number] / [id number]
== END 2019-04-19 09:59 | disposition home or self-care (01) | DRG 392 ==
LOC: ER 16:02 → 1 SOUTH 18:30 → ER 19:33
PROVIDERS: ADMIT Internal Medicine; ATTEND Internal Medicine
DX: K52.9 Noninfective gastroenteritis and colitis, unspecified (principal); G43.909 Migraine, unspecified, not intractable, without status migrainosus; E87.6 Hypokalemia; R79.89 Other specified abnormal findings of blood chemistry; I10 Essential (primary) hypertension; E78.00 Pure hypercholesterolemia, unspecified; Z86.718 Personal history of other venous thrombosis and embolism; E86.0 Dehydration; I25.10 Atherosclerotic heart disease of native coronary artery without angina pectoris; G89.4 Chronic pain syndrome; G62.9 Polyneuropathy, unspecified; E78.5 Hyperlipidemia, unspecified; M19.90 Unspecified osteoarthritis, unspecified site; E83.42 Hypomagnesemia; I25.2 Old myocardial infarction; K44.9 Diaphragmatic hernia without obstruction or gangrene; N40.0 Benign prostatic hyperplasia without lower urinary tract symptoms; Z96.651 Presence of right artificial knee joint; Z95.1 Presence of aortocoronary bypass graft; Z87.11 Personal history of peptic ulcer disease; Z86.79 Personal history of other diseases of the circulatory system; Z86.73 Personal history of transient ischemic attack (TIA), and cerebral infarction without residual deficits; Z86.711 Personal history of pulmonary embolism; Z82.49 Family history of ischemic heart disease and other diseases of the circulatory system; Z80.1 Family history of malignant neoplasm of trachea, bronchus and lung; Z79.01 Long term (current) use of anticoagulants
CPT/HCPCS: 36415; 71045; 74177; 80048; 80053; 81001; 83605; 83690; 83735; 83880; 84484; 85025; 85027; 85610; 85730; 87804; 93005; 96361; 96374; 96376; C9113; J0360; J2060; J2270; J2405; J3475; J3480; J7042; J7120; Q9967; 99285-25; J7030

== ENCOUNTER 2020-08-15 20:28 | Emergency (ER) | payer MEDICARE ==
[~2020-08-15] VITALS: Ht 167.6 cm; Wt 74.7 kg
[~2020-08-15 20:28] MED LIST changes: +ALPR0.254 PO; +APIX5TAB3 PO; +ATOR20TA58 PO; +BRIN10DR EACHEYE; +DULO60CA6 PO; +DUTA0.5C PO; +GABA-586 PO; -IOHEXOL 300 MG/ML 75 ML VIAL. IV ONE; +LISI10TA16 PO; +METO25TA4 PO; +MORP-16 PO; +OXYC1TAB22 PO; +QUET25TA5 PO
--- NOTE | 2020-08-15 20:45 | PHYS DOC ---
Past History Past Medical History: GI Bleed, High Cholesterol, Hypertension, Other Additional Past Medical Histor: bleeding ulcers, Pulmonary Embolism, " blood clot in my lung" Past Surgical History: Other Additional Past Surgical Histo: Aortic Aneurysm repair, Alcohol Use: Rarely Drug Use: None Adult General Chief Complaint Chief Complaint: ALCOHOL INTOXICATION HPI HPI Patient is an 79-year-old male who presents to the emergency department via EMS, intoxicated. Per EMS and the patient he was at home, drinking, and called 911 for an unknown reason, got mad and hung up on them. Not on one side EMS on the [place] over there. Patient was intoxicated and unsteady on his feet and was directed to the emergency department. Patient denies headache, change in vision, neck pain, chest pain, shortness of breath, abdominal pain, nausea, vomiting. Denies any numbness/weakness/tingling. Denies any traumas or falls. Denies any recent illnesses, fevers or known ill contacts. Review of Systems Review of Systems Review of systems otherwise unremarkable except noted in HPI Allergies Allergies Allergies Coded Allergies Type Severity Reaction Last Updated Verified aspirin Adverse Reaction Unknown 04/16/19 Yes Physical Exam Physical Exam Constitutional: Well developed, well nourished, no acute distress, non-toxic appearance. [] HENT: Normocephalic, atraumatic, bilateral external ears normal, oropharynx moist, no oral exudates, nose normal. [] Eyes: PERRLA, EOMI, conjunctiva normal, no discharge. [] Neck: Normal range of motion, no tenderness, supple, no stridor. [] Cardiovascular:Heart rate regular rhythm, no murmur [] Lungs & Thorax: Bilateral breath sounds clear to auscultation [] Abdomen: soft, no tenderness, no masses, no pulsatile masses. [] Skin: Warm, dry, no erythema, no rash. [] Back: No tenderness, Extremities: No tenderness, no cyanosis, no clubbing, ROM intact, no edema. [] Neurologic: Alert and oriented X 3, normal motor function, normal sensory function, no focal deficits noted. [] Psychologic: Affect normal, judgement normal, mood normal. [] EKG EKG Rate of 59, QRS of 142, QTc 418, right bundle branch morphology, no STEMI [] Radiology/Procedures Radiology/Procedures []Exam: CT head INDICATION: Fall on blood thinner TECHNIQUE: Sequential axial images through the head were obtained without the administration of IV contrast. Comparisons: None FINDINGS: No focal parenchymal lesion or hemorrhage is identified. There is no midline shift or sulcal effacement. Mild patchy hypodensity in the periventricular white matter. No acute vascular territory infarction is identified. Mendiola-white distinction is preserved. The ventricular system is within normal limits without compression hydrocephalus. The basal cisterns are well maintained. The visualized portions of the paranasal sinuses and mastoid air cells are well- pneumatized. No acute fractures. IMPRESSION: Mild small vessel ischemic change, technically age indeterminate without recent prior imaging. No acute hemorrhage. Exposure: One or more of the following in the visualized dose reduction techniques were utilized for this examination: 1. Automated exposure control 2. Adjustment of the MA and/or KV according to patient size Use of iterative of reconstructive technique Electronically signed by: Dallin Urena MD (08/15/2020 9:29 PM) [facility] Heart Score C/O Chest Pain: No Risk Factors: Risk Factors: DM, Current or recent (<one month) smoker, HTN, HLP, family history of CAD, obesity. Risk Scores: Risk Factors: DM, Current or recent (<one month) smoker, HTN, HLP, family history of CAD, obesity. Course & Med Decision Making Course & Med Decision Making Patient is an 79-year-old male who presents intoxicated from home after calling 911 angry. Vital signs notable for hypertension. Physical exam noted above. Patient is on Eliquis and intoxicated so CT of the head and EKG reasonable. CT of the head not concerning. EKG not concerning. Patient alert and oriented no acute distress, although probably intoxicated and endorses drinking today some beers and leonel. After observation in the emergency department patient was able to take p.o. without issue. Able to ambulate without issue. On reassessment, patient was awake and alert stating he was ready to be discharged home. Offered some more observation time in the ED to allow sleep. Patient stated he was good and was ready to be discharged home and asked to have a cab call for him. Gave strict return precautions to the emergency department as well as discussed cutting back on alcohol use at home. Dragon Disclaimer Dragon Disclaimer This electronic medical record was generated, in whole or in part, using a voice recognition dictation system. Departure Departure: Impression: Primary Impression: Alcohol intoxication Disposition: 01 DC HOME SELF CARE/HOMELESS Condition: GOOD Referrals: HIPOLITO MAYNARD MD (PCP) Patient Instructions: Alcohol Intoxication, [id number] Additional Instructions: Please read all the attached information carefully. You are offered observation in the emergency department to low more time to rest but you chose to go home. Please call your primary care physician first thing in the morning to update on ED visit and set up a follow-up as soon as possible. Please come back to the ED with new or concerning symptoms. BRIJESH SINGH MD Aug 15, 2020 20:45
--- NOTE | 2020-08-15 21:32 | RAD ---
Exam: CT head INDICATION: Fall on blood thinner TECHNIQUE: Sequential axial images through the head were obtained without the administration of IV co ntrast. Comparisons: None FINDINGS: No focal parenchymal lesion or hemorrhage is identified. There is no midline shift or sulcal effaceme nt. Mild patchy hypodensity in the periventricular white matter. No acute vascular territory infarction i s identified. Mendiola-white distinction is preserved. The ventricular system is within normal limits without compression hydrocephalus. The basal cisterns are well maintained. The visualized portions of the paranasal sinuses and mastoid air cells are well-pneumatized. No acute fractures. IMPRESSION: Mild small vessel ischemic change, technically age indeterminate without recent prior imaging. No acu te hemorrhage. Exposure: One or more of the following in the visualized dose reduction techniques were utilized for this examination: 1. Automated exposure control 2. Adjustment of the MA and/or KV according to patient size Use of iterative of reconstructive technique Electronically signed by: Dallin Urena MD (08/15/2020 9:29 PM) [facility]
--- NOTE | 2020-08-16 00:17 | EKG ---
[address] [address] Test Date: 2020-08-15 Test Time: 20:54:37 Pat Name: ETHAN REYESELFEGO Department: Room: Gender: M Anvilsmith: CHASITY : 1940 Requested By: BRIJESH SINGH Order Number: [id number] Reading MD: Measurements Intervals [place] Rate: 59 P: -32 AL: 200 QRS: 54 QRSD: 142 T: -6 QT: 418 QTc: 418 Interpretive Statements SINUS RHYTHM RIGHT BUNDLE BRANCH BLOCK ABNORMAL ECG RI6.02 No previous ECG available for comparison
[2020-08-16 01:30] VITALS: BP 138/67
== END 2020-08-16 01:30 | disposition home or self-care (01) ==
LOC: ER 20:28
DX: F10.129 Alcohol abuse with intoxication, unspecified (principal); I10 Essential (primary) hypertension; Y90.8 Blood alcohol level of 240 mg/100 ml or more
CPT/HCPCS: 70450; 93005; 99285-25

== ENCOUNTER → 2020-08-26 | Outpatient (CLI) | payer MEDICARE ==
[2020-08-16 01:30] VITALS: BP 138/67
--- NOTE | 2020-08-26 11:13 | RAD ---
EXAM: DUAL ENERGY X-RAY ABSORPTIOMETRY (DEXA). HISTORY: Osteoporosis screening. FINDINGS: The lowest measured T-score is -1.9 in the right hip, based on a bone mineral density of 0. 774 g/cm^2. Refer to the worksheets for full detail. No comparison examinations are available. IMPRESSION: 1. Low bone mass. Bone mineral density yields a T-score between -1.0 and -2.5. Fracture risk is incre ased. 2. FRAX report: Not calculated. METHODOLOGY: Dual energy x-ray absorptiometry was performed to measure bone mineral density. The foll owing analysis is based on the 2019 Official Positions of the International Society for Clinical Dens itometry: Measurements of the hips and the average of L1-L4 are preferred. When the spine and/or hip cannot be feasibly measured or interpreted, or in the setting of hyperparathyroidism, distal radial bone minera l density may be measured. The lumbar spine T-score is based on the average bone mineral density of L1-L4. In the setting of art ifact or anatomic abnormality, some lumbar levels may be excluded, and the remaining levels used for calculation. A single lumbar level is not used for diagnosis, and if only a single level is available for assessment, another anatomic site will be used to assign a diagnosis. The hip T-score is based on the bone mineral density measurement of the femoral neck or total proxima l femur of either side, whichever is lowest. Bilateral mean values are not used for diagnosis. The forearm T-score is derived from 33% of the distal radius of the nondominant forearm. Electronically signed by: Mi Munguia MD (08/26/2020 11:10 AM) [id number]
== END ==
LOC: DXRAD 09:47
PROVIDERS: ATTEND Family Medicine
DX: Z13.820 Encounter for screening for osteoporosis (principal); N18.31 Chronic kidney disease, stage 3a; R26.9 Unspecified abnormalities of gait and mobility; M89.9 Disorder of bone, unspecified; M81.8 Other osteoporosis without current pathological fracture
CPT/HCPCS: 77080

== ENCOUNTER 2021-07-28 10:07 | Emergency (ER) | payer MEDICARE ==
[~2021-07-28] VITALS: Ht 167.6 cm; Wt 67.4 kg
[~2021-07-28 10:07] MED LIST changes: -DULO60CA6 PO; +DULO60CA7 PO
[2021-07-28] MEDS ORDERED: IV RINGERS SOLUTION,LACTATED 1,000 ML IV ONE (10:45)
[2021-07-28 11:02] LABS: BASO % 1 % (0-3); EOS # 0.6 x10^3/uL (0.0-0.7); EOS % 10 % (0-3); HEMOGLOBIN 10.9 g/dL (13.0-17.5); LYMPH # 1.7 x10^3/uL (1.0-4.8); LYMPH % 25 % (24-48); MEAN CORPUSCULAR HEMOGLOBIN 32 pg (25-35); MEAN CORPUSCULAR HGB CONC 33 g/dL (31-37); MEAN CORPUSCULAR VOLUME 98 fL (79-100); MONO # 0.7 x10^3/uL (0.0-1.1); MONO % 10 % (0-9); NEUT # 3.6 x10^3uL (1.8-7.7); NEUT % 54 % (31-73); PLATELET COUNT 114 x10^3/uL (140-400); RED BLOOD COUNT 3.36 x10^6/uL (4.30-5.70); RED CELL DISTRIBUTION WIDTH 14.1 % (11.5-14.5); WHITE BLOOD COUNT 6.6 x10^3/uL (4.0-11.0)
[2021-07-28 11:13] LABS: CALCIUM 8.2 mg/dL (8.5-10.1); CREATININE 4.9 mg/dL (0.7-1.3); GFR 11.5; POTASSIUM 3.6 mmol/L (3.5-5.1)
[2021-07-28 11:17] LABS: ALBUMIN 3.5 g/dL (3.4-5.0); ALBUMIN/GLOBULIN RATIO 1.2 (1.0-1.7); MAGNESIUM 2.4 mg/dL (1.8-2.4); TOTAL BILIRUBIN 0.4 mg/dL (0.2-1.0); TOTAL PROTEIN 6.4 g/dL (6.4-8.2)
--- NOTE | 2021-07-28 11:18 | RAD ---
EXAMINATION: CT head and cervical spine without IV contrast. INDICATION:80 years, Male, fall. COMPARISON: CT brain dated 08/15/2020. CT cervical spine dated 08/30/2016. TECHNIQUE: Spiral acquisition of contiguous images from the skull base to the vertex were obtained. C T of the cervical spine was obtained using contiguous spiral imaging from the skull base to the upper thoracic level. Sagittal and coronal 2D reformatted series were provided by the technologist. Soft t issue and bone window algorithms were reviewed. Exposure: One or more of the following individualized dose reduction techniques were utilized for thi s examination: 1. Automated exposure control 2. Adjustment of the mA and/or kV according to patient size 3. Use of iterative reconstruction technique. FINDINGS: CT HEAD: Neither mass, midline shift, intracranial hemorrhage, acute/subacute ischemic changes, nor extraaxial fluid collections are seen. Moderate brain parenchymal volume loss. 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 Opacification of visualized maxillary sinus, similar to prior exam. Remaining visualized p aranasal sinuses, mastoid air cells, and middle ears are clear. The orbital contents appear within no rmal limits. CT CERVICAL SPINE: Grade 1 anterolisthesis of C7 over T1. Neither fracture, subluxation, nor traumatic spondylolisthesis is seen. The vertebral body heights are preserved. Severe multilevel degenerative changes with disc space narrowing, endplate erosions and osteophytes. Vacuum disc phenomena at C5-6. Severe bilateral f acet and uncovertebral arthropathy. There is no evidence of a large intraspinal hematoma. The prevert ebral and paravertebral soft tissues are within normal limits. There is a lobulated 6.5 x 3.0 x 6.1 cm, fat density mass with internal linear soft tissue densities seen in the left posterior subcutaneous neck, essentially unchanged since prior exam. IMPRESSION: 1. No acute intracranial abnormality. 2. No acute fracture of the cervical spine. 3. A 6.5 cm lobulated fat density mass with internal linear soft tissue densities seen in the left p osterior neck subcutaneous tissue, essentially unchanged since August 2016. 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 Electronically signed by: Belen Bob MD (07/28/2021 11:16 AM) [id number]
--- NOTE | 2021-07-28 11:21 | RAD ---
XR CHEST 1V History: Reason: fall out of bed, reported heart block / Spl. Instructions: / History:. Pain Comparison: July 19, 2021 Findings: Mild patchy mid and bibasilar opacities. Large hiatal hernia. Prior median sternotomy. Enlarged chron ic size, unchanged. Tortuous enlarged thoracic aorta, unchanged. Atheromatous plaque within the aorta . No pneumothorax. Impression: 1. Mild patchy mid and bibasilar opacities, may represent atelectasis or developing infiltrates. If persistent clinical concern, recommend follow-up. 2. Large hiatal hernia. Electronically signed by: Alessandro Bentley DO (07/28/2021 11:19 AM) [id number]
--- NOTE | 2021-07-28 11:55 | PHYS DOC ---
Past History Past Medical History: Anxiety, Coagulopathy, Depression, High Cholesterol, Hypertension, Other Additional Past Medical Histor: BLOOD CLOTS,NEUROPATHY, AAA Past Surgical History: Other Additional Past Surgical Histo: Aortic Aneurysm repair Alcohol Use: Occasionally Drug Use: None General Adult EDM: Chief Complaint: MECHANICAL FALL HPI: HPI: Patient is an 80-year-old male who presents via EMS status post fall out of bed. Patient states he was dreaming that he was falling, and woke up as he was falling out of his bed. He does have occipital contusion. Patient has no complaints of pain, only states "something is not right." EMS directed patient to emergency department secondary to concerns for bradycardia with heart rate in the 40s. Patient has some chronic slurred speech that is well-documented and confirmed normal by neighbor. Patient has been seen in the emergency department for alcohol intoxication. He states that his last alcoholic beverage was a beer a few days ago. He states he sometimes drinks alcohol to help him sleep. Patient is on Eliquis for "blood clots." Patient is unable to provide other specific daily medications but has documented history of high cholesterol, high blood pressure, repaired AAA, hiatal hernia, aortic dissection. Review of Systems: Review of Systems: Constitutional: Denies fever, chills or generalized weakness Eyes: Denies change in visual acuity, visual field deficits or discharge HENT: Denies ear pain, nasal congestion or sore throat Respiratory: Denies cough or shortness of breath Cardiovascular: Denies chest pain, palpitations or edema GI: Denies abdominal pain, nausea, vomiting, bloody stools or diarrhea : Denies dysuria or hematuria Musculoskeletal: Denies back pain or new joint pain Integument: See HPI Neurologic: Denies headache, focal weakness or sensory changes Current Medications: Current Meds: Current Medications Medications (Trade) Dose Ordered Sig/Corazon Start Time Stop Time Status Last Admin Dose Admin Lactated Ringer's 1,000 ml @ 1,000 mls/hr 1X ONCE 07/28/21 10:45 07/28/21 11:44 DC 07/28/21 10:56 1,000 MLS/HR Allergies: Allergies: Allergies Coded Allergies Type Severity Reaction Last Updated Verified aspirin Adverse Reaction Unknown 07/28/21 Yes Physical Exam: PE: Constitutional: Thin, no acute distress, non-toxic appearance. HENT: Normocephalic, high occipital contusion noted without hematoma or laceration, bilateral external ears normal, nose normal. Eyes: PERRL, EOMI, conjunctiva normal, no discharge. Neck: Normal range of motion, no tenderness, supple, no stridor, left-sided soft mass consistent with lipoma appreciated. Cardiovascular: Bradycardic rate with regular rhythm, no obvious murmur. Lungs & Thorax: Bilateral breath sounds clear to auscultation, diminished throughout. Back: No step-off, no tenderness. Extremities: No tenderness, no cyanosis, no clubbing, ROM intact, no obvious deformity. Neurologic: Alert and oriented, normal motor function, normal sensory function, no focal deficits noted, slurred speech appreciated which is consistent with baseline. Current Patient Data: Labs: Laboratory Tests Test 07/28/21 10:45 07/28/21 12:35 White Blood Count 6.6 x10^3/uL (4.0-11.0) Red Blood Count 3.36 x10^6/uL (4.30-5.70) Hemoglobin 10.9 g/dL (13.0-17.5) Hematocrit 33.0 % (39.0-53.0) Mean Corpuscular Volume 98 fL (79-100) Mean Corpuscular Hemoglobin 32 pg (25-35) Mean Corpuscular Hemoglobin Concent 33 g/dL (31-37) Red Cell Distribution Width 14.1 % (11.5-14.5) Platelet Count 114 x10^3/uL (140-400) Neutrophils (%) (Auto) 54 % (31-73) Lymphocytes (%) (Auto) 25 % (24-48) Monocytes (%) (Auto) 10 % (0-9) Eosinophils (%) (Auto) 10 % (0-3) Basophils (%) (Auto) 1 % (0-3) Neutrophils # (Auto) 3.6 x10^3uL (1.8-7.7) Lymphocytes # (Auto) 1.7 x10^3/uL (1.0-4.8) Monocytes # (Auto) 0.7 x10^3/uL (0.0-1.1) Eosinophils # (Auto) 0.6 x10^3/uL (0.0-0.7) Basophils # (Auto) 0.0 x10^3/uL (0.0-0.2) Sodium Level 133 mmol/L (136-145) Potassium Level 3.6 mmol/L (3.5-5.1) Chloride Level 100 mmol/L (98-107) Carbon Dioxide Level 23 mmol/L (21-32) Anion Gap 10 (6-14) Blood Urea Nitrogen 57 mg/dL (8-26) Creatinine 4.9 mg/dL (0.7-1.3) Estimated GFR (Cockcroft-Gault) 11.5 BUN/Creatinine Ratio 12 (6-20) Glucose Level 97 mg/dL (70-99) Calcium Level 8.2 mg/dL (8.5-10.1) Magnesium Level 2.4 mg/dL (1.8-2.4) Total Bilirubin 0.4 mg/dL (0.2-1.0) Aspartate Amino Transf (AST/SGOT) 68 U/L (15-37) Alanine Aminotransferase (ALT/SGPT) 36 U/L (16-63) Alkaline Phosphatase 60 U/L (46-116) Troponin I High Sensitivity 32 ng/L (4-75) Total Protein 6.4 g/dL (6.4-8.2) Albumin 3.5 g/dL (3.4-5.0) Albumin/Globulin Ratio 1.2 (1.0-1.7) Lipase 79 U/L (73-393) Ethyl Alcohol Level < 10 mg/dL (0-10) Urine Collection Type Unknown Urine Color Yellow Urine Clarity Clear Urine pH 5.5 Urine Specific [place] 1.020 Urine Protein Neg (NEG-TRACE) Urine Glucose (UA) Neg mg/dL (NEG) Urine Ketones (Stick) Neg mg/dL (NEG) Urine Blood Small (NEG) Urine Nitrite Neg (NEG) Urine Bilirubin Neg (NEG) Urine Urobilinogen Dipstick 0.2 mg/dL (0.2 mg/dL) Urine Leukocyte Esterase Neg (NEG) Urine RBC 3-5 /HPF (0-2) Urine WBC 1-4 /HPF (0-4) Urine Squamous Epithelial Cells Mod /LPF Urine Bacteria Few /HPF (0-FEW) Urine Hyaline Casts Mod /HPF Urine Mucus Mod /LPF Urine Yeast Present /HPF Urine Opiates Screen Pos (NEG) Urine Methadone Screen Neg (NEG) Urine Barbiturates Neg (NEG) Urine Phencyclidine Screen Neg (NEG) Urine Amphetamine/Methamphetamine Neg (NEG) Urine Benzodiazepines Screen Neg (NEG) Urine Cocaine Screen Neg (NEG) Urine Cannabinoids Screen Neg (NEG) Urine Ethyl Alcohol Neg (NEG) Vital Signs: Vital Signs Date Time Temp Pulse Resp B/P (MAP) Pulse Ox O2 Delivery O2 Flow Rate FiO2 07/28/21 12:39 53 14 155/75 (101) 97 Room Air 07/28/21 11:45 54 16 215/79 (124) 100 Room Air 07/28/21 11:18 47 13 143/72 (95) 95 Room Air 07/28/21 10:40 48 12 134/70 (91) 93 Room Air 07/28/21 10:18 98.0 51 18 129/70 (89) 93 Room Air EKG: EKG: EKG Interpreted by Dr. Romero at 1041: Regular rate and rhythm 49 bpm with no ectopic beats. RBBB, stable compared to prior EKGs. QT 472 ms/QTc 429 ms. No STEMI. Radiology/Procedures: Radiology/Procedures: PROCEDURE: CT HEAD AND CERVICAL SPINE WO EXAMINATION: CT head and cervical spine without IV contrast. INDICATION:80 years, Male, fall. COMPARISON: CT brain dated 08/15/2020. CT cervical spine dated 08/30/2016. TECHNIQUE: Spiral acquisition of contiguous images from the skull base to the vertex were obtained. CT of the cervical spine was obtained using contiguous spiral imaging from the skull base to the upper thoracic level. Sagittal and coronal 2D reformatted series were provided by the technologist. Soft tissue and bone window algorithms were reviewed. Exposure: One or more of the following individualized dose reduction techniques were utilized for this examination: 1. Automated exposure control 2. Adjustment of the mA and/or kV according to patient size 3. Use of iterative reconstruction technique. FINDINGS: CT HEAD: Neither mass, midline shift, intracranial hemorrhage, acute/subacute ischemic changes, nor extraaxial fluid collections are seen. Moderate brain parenchymal volume loss. Similar supratentorial periventricular white matter hypodensities, indeterminate but most likely representing chronic microangiopathic disease. Opacification of visualized maxillary sinus, similar to prior exam. Remaining visualized paranasal sinuses, mastoid air cells, and middle ears are clear. The orbital contents appear within normal limits. CT CERVICAL SPINE: Grade 1 anterolisthesis of C7 over T1. Neither fracture, subluxation, nor traumatic spondylolisthesis is seen. The vertebral body heights are preserved. Severe multilevel degenerative changes with disc space narrowing, endplate erosions and osteophytes. Vacuum disc phenomena at C5-6. Severe bilateral facet and uncovertebral arthropathy. There is no evidence of a large intraspinal hematoma. The prevertebral and paravertebral soft tissues are within normal limits. There is a lobulated 6.5 x 3.0 x 6.1 cm, fat density mass with internal linear soft tissue densities seen in the left posterior subcutaneous neck, essentially unchanged since prior exam. IMPRESSION: 1. No acute intracranial abnormality. 2. No acute fracture of the cervical spine. 3. A 6.5 cm lobulated fat density mass with internal linear soft tissue densities seen in the left posterior neck subcutaneous tissue, essentially unchanged since August 2016. 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 Electronically signed by: Belen Bob MD (07/28/2021 11:16 AM) [id number] PROCEDURE: CHEST AP ONLY XR CHEST 1V History: Reason: fall out of bed, reported heart block / Spl. Instructions: / History:. Pain Comparison: July 19, 2021 Findings: Mild patchy mid and bibasilar opacities. Large hiatal hernia. Prior median sternotomy. Enlarged chronic size, unchanged. Tortuous enlarged thoracic aorta, unchanged. Atheromatous plaque within the aorta. No pneumothorax. Impression: 1. Mild patchy mid and bibasilar opacities, may represent atelectasis or developing infiltrates. If persistent clinical concern, recommend follow-up. 2. Large hiatal hernia. Electronically signed by: Alessandro Bentley DO (07/28/2021 11:19 AM) [id number] Heart Score: C/O Chest Pain: No Course & Med Decision Making: Course & Med Decision Making Pertinent Labs and Imaging studies reviewed. (See chart for details) Patient is an 80-year-old male on [facility] who experienced a fall out of bed this morning. EMS was called for lift assist and brought him to the emergency department with concern for bradycardia. Work-up today is concerning for acute kidney injury with creatinine at 4.9, compared to 07/23/2021 at 1.0. Additionally he is anemic at 10.9 compared to 12.1 on 07/23/2021. Patient additionally is hyponatremic, which is not new for the patient. Patient's heart rate is now in the 50s, consistent with his baseline. Patient will be transferred to [facility] for higher level of care including nephrology. Dr. Hernandez, hospitalist, gladly accepts patient for transfer. Patient hemodynamically stable at time of transfer. Dragon Disclaimer: Dragon Disclaimer: This electronic medical record was generated, in whole or in part, using a voice recognition dictation system. Departure Departure: Impression: Primary Impression: GENET (acute kidney injury) Additional Impressions: Hyponatremia Anemia Qualified Codes: D64.9 - Anemia, unspecified Bradycardia Disposition: 02 SHORT TERM HOSPITAL Condition: GUARDED Referrals: HIPOLITO MAYNARD MD (PCP) [place] Jul 28, 2021 11:55
[2021-07-28 13:33] LABS: BARBITURATES NEG (NEG); BENZODIAZEPINES NEG (NEG); CANNABINOIDS NEG (NEG); COCAINE NEG (NEG); METHADONE NEG (NEG); OPIATES POS (NEG); PHENCYCLIDINE NEG (NEG)
[2021-07-28 13:34] LABS: AMPHETAMINE/METHAMPHETAMINE NEG (NEG)
[2021-07-28 13:41] LABS: BACTERIA,URINE FEW /HPF (0-FEW); CLARITY,URINE CLEAR; COLOR,URINE YELLOW; GLUCOSE,URINE NEG (NEG); HYALINE CASTS, URINE MOD /HPF; NITRITE,URINE NEG (NEG); SQUAMOUS EPITHELIAL CELL,UR MOD /LPF; UROBILINOGEN,URINE 0.2 mg/dL (0.2 mg/dL); YEAST,URINE PRESENT /HPF
[2021-07-28 14:58] VITALS: BP 143/75
--- NOTE | 2021-07-28 18:28 | EKG ---
[address] [address] Test Date: 2021-07-28 Test Time: 10:40:59 Pat Name: ETHAN CHAHAL Department: Room: Gender: M Desk Interviewer: : [id number] Requested By: [place] Order Number: [id number] Reading MD: Monty Lino MD Measurements Intervals [place] Rate: 49 P: 48 AK: 210 QRS: 50 QRSD: 150 T: 9 QT: 472 QTc: 429 Interpretive Statements SINUS BRADYCARDIA RBBB Electronically Signed On 07-29-2021 17:39:44 CDT by Monty Lino MD
== END 2021-07-28 15:20 | disposition short-term general hospital (02) ==
LOC: ER 10:07
DX: S00.03XA Contusion of scalp, initial encounter (principal); N17.9 Acute kidney failure, unspecified; E87.1 Hypo-osmolality and hyponatremia; D64.9 Anemia, unspecified; R00.1 Bradycardia, unspecified; F41.9 Anxiety disorder, unspecified; F32.9 Major depressive disorder, single episode, unspecified; E78.00 Pure hypercholesterolemia, unspecified; I10 Essential (primary) hypertension; Z79.01 Long term (current) use of anticoagulants; Z88.6 Allergy status to analgesic agent; W06.XXXA Fall from bed, initial encounter; Y93.89 Activity, other specified; Y92.89 Other specified places as the place of occurrence of the external cause; Y99.8 Other external cause status
CPT/HCPCS: 36415; 70450; 71045; 72125; 80053; 80307; 81001; 83690; 83735; 84484; 85025; 93005; 96360; 96361; 99285; G0480; J7120